=== PATIENT | male | born 1980 | race Caucasian/White ===

== ENCOUNTER 2020-10-02 09:18 | Inpatient (IN) ==
[2020-10-02] MEDS ORDERED: Naloxone 0.4 MG/ML INJ IVP PRN (11:30)
[2020-10-02] MEDS ORDERED: Acetaminophen 325 MG TABLET PO PRN (12:36)
[2020-10-02] MEDS: *HR* HYDROcodone/Acet 5/325 mg TABLET PO PRN ×2 (13:02→19:36)
[2020-10-02] MEDS: *HR* Enoxaparin 100 MG/ML SYRINGE SQ SCH ×2 (13:09→18:53)
[2020-10-02] MEDS ORDERED: Perflutren Lipid Microsphere 1.3 ML in 0.9 % Sodium Chloride 8.7 ML IVP PRN (13:38)
[2020-10-02] MEDS ORDERED: Piperacillin/Tazobactam 3.375 GM in 0.9 % Sodium Chloride Mini Bag 100 ML IVPB SCH (14:00)
[2020-10-02] MEDS: Vancomycin 1,500 MG/265 ML IV.SOLN IVPB SCH (14:50)
[2020-10-02] MEDS: Ringers Solution, Lactated 1,000 ML IVC SCH ×2 (14:54→23:29)
[2020-10-02] MEDS: Nicotine 21 MG PATCH.TD24 TD SCH (14:55)
[2020-10-02] MEDS: Ipratropium Neb 0.5 MG NEBULIZER IH SCH ×3 (16:20→23:47)
[2020-10-02] MEDS ORDERED: *HR* LORazepam 0.5 MG TABLET PO ONE (19:53)
[2020-10-02] MEDS ORDERED: Isovue-370 500 ML BOTTLE IVP ONE (22:38)
[2020-10-02] MEDS: Acyclovir 800 MG in D5% in Water 250 ML IVPB SCH (23:29)
[2020-10-02] MEDS: Dexamethasone Sodium Phos/PF 10 MG/ML VIAL IVP SCH (23:30)
[2020-10-03] MEDS: Vancomycin 1,500 MG/265 ML IV.SOLN IVPB SCH ×2 (01:42→14:31)
[2020-10-03] MEDS: *HR* HYDROcodone/Acet 5/325 mg TABLET PO PRN ×2 (01:42→18:33)
[2020-10-03] MEDS: Ipratropium Neb 0.5 MG NEBULIZER IH SCH ×6 (03:39→23:17)
[2020-10-03] MEDS: Dexamethasone Sodium Phos/PF 10 MG/ML VIAL IVP SCH ×2 (05:03→12:32)
[2020-10-03] MEDS: *HR* Enoxaparin 100 MG/ML SYRINGE SQ SCH (05:04)
[2020-10-03 05:41] LABS: Basophils % 0.1 %; Hematocrit 35.2 % (37.5-50.1); Hemoglobin 11.4 g/dL (12.9-16.9); Immature Granulocytes % 0.9 % (0-4); Lymphocytes # 0.8 K/mcL (0.6-4.6); Lymphocytes % 6.3 %; Mean Corpuscular HGB Conc 32.4 g/dL (31.6-35.5); Mean Corpuscular Hemoglobin 29.1 pg (28.0-33.3); Mean Corpuscular Volume 89.8 fL (83.0-100.0); Mean Platelet Volume 11.3 fL (9.4-12.4); Monocytes # 0.4 K/mcL (0.0-1.3); Monocytes % 3.1 %; Neutrophils # 11.7 K/mcL (1.6-8.9); Platelet Count 214 K/mcL (140-400); Red Blood Count 3.92 M/mcL (4.19-5.50); Red Cell Distribution Width 12.5 % (11.5-14.5); Segmented Neutrophils % 89.6 %; White Blood Count 13.1 K/mcL (4.3-11.1)
[2020-10-03 05:56] LABS: BUN/Creatinine Ratio 12 (6-26); Blood Urea Nitrogen 7 mg/dL (6-20); Calcium 7.8 mg/dL (8.6-10.3); Carbon Dioxide 23 mEq/L (23-29); Chloride 101 mEq/L (98-107); Glucose 129 mg/dL (70-105); Osmolality,Calculated 274 (280-300); Potassium 3.6 mEq/L (3.5-5.1); Sodium 132 mEq/L (136-145); eGFR For African Americans > 60 (> 60); eGFR For Non-African Americans > 60 (> 60)
[2020-10-03] MEDS: Nicotine 21 MG PATCH.TD24 TD SCH (08:01)
[2020-10-03] MEDS: Acyclovir 800 MG in D5% in Water 250 ML IVPB SCH ×3 (08:05→23:16)
[2020-10-03] MEDS: metroNIDAZOLE 500 MG TABLET PO SCH ×2 (12:32→20:13)
[2020-10-03] MEDS: 0.9 % Sodium Chloride 1,000 ML IVC SCH ×2 (15:44→23:16)
[2020-10-03] MEDS: cefTRIAXone 2,000 MG in Water for inj. (sterile) 20 ML IVP SCH (17:32)
[2020-10-03] MEDS: Dexamethasone 4 MG/ML VIAL IVP SCH ×2 (17:37→23:17)
[2020-10-04 01:26] LABS: Basophils % 0.1 %; Hematocrit 36.8 % (37.5-50.1); Lymphocytes # 0.9 K/mcL (0.6-4.6); Lymphocytes % 3.9 %; Mean Corpuscular HGB Conc 32.6 g/dL (31.6-35.5); Mean Corpuscular Hemoglobin 28.4 pg (28.0-33.3); Mean Platelet Volume 11.1 fL (9.4-12.4); Monocytes # 0.7 K/mcL (0.0-1.3); Monocytes % 3.2 %; Neutrophils # 20.2 K/mcL (1.6-8.9); Platelet Count 318 K/mcL (140-400); Red Blood Count 4.23 M/mcL (4.19-5.50); Red Cell Distribution Width 12.5 % (11.5-14.5); Segmented Neutrophils % 91.8 %
[2020-10-04 01:43] LABS: BUN/Creatinine Ratio 26 (6-26); Blood Urea Nitrogen 14 mg/dL (6-20); Calcium 8.4 mg/dL (8.6-10.3); Carbon Dioxide 26 mEq/L (23-29); Chloride 104 mEq/L (98-107); Glucose 151 mg/dL (70-105); Osmolality,Calculated 283 (280-300); Potassium 3.5 mEq/L (3.5-5.1); Sodium 135 mEq/L (136-145); eGFR For African Americans > 60 (> 60); eGFR For Non-African Americans > 60 (> 60)
[2020-10-04] MEDS: Vancomycin 1,500 MG/265 ML IV.SOLN IVPB SCH ×3 (01:49→17:34)
[2020-10-04] MEDS: Ipratropium Neb 0.5 MG NEBULIZER IH SCH ×6 (03:28→23:41)
[2020-10-04] MEDS: cefTRIAXone 2,000 MG in Water for inj. (sterile) 20 ML IVP SCH ×2 (05:25→17:25)
[2020-10-04] MEDS: Dexamethasone 4 MG/ML VIAL IVP SCH ×3 (05:25→17:34)
[2020-10-04] MEDS: metroNIDAZOLE 500 MG TABLET PO SCH ×3 (08:13→19:09)
[2020-10-04] MEDS: Nicotine 21 MG PATCH.TD24 TD SCH (08:13)
[2020-10-04] MEDS: 0.9 % Sodium Chloride 1,000 ML IVC SCH ×2 (08:26→18:35)
[2020-10-04 09:54] LABS: INR 1.3; Prothrombin Time 15.4 Seconds (9.4-12.1)
[2020-10-04] MEDS: Acyclovir 800 MG in D5% in Water 250 ML IVPB SCH ×2 (12:06→15:38)
[2020-10-04 12:18] LABS: Appearance,CSF Clear (Clear)
[2020-10-04 12:30] LABS: Red Blood Cell,CSF < 2000 RBC/mcL
[2020-10-04 12:53] LABS: Glucose,CSF 77 mg/dL (40-70); Total Protein,CSF 46 mg/dL (15-45)
[2020-10-04 13:21] LABS: Basophils,CSF 0 %; Eosinophils,CSF 0 %; Other Cells,CSF 0 %
[2020-10-04] MEDS: *HR* HYDROcodone/Acet 5/325 mg TABLET PO PRN (14:59)
[2020-10-05] MEDS: Dexamethasone 4 MG/ML VIAL IVP SCH ×5 (00:33→23:17)
[2020-10-05] MEDS: Acyclovir 800 MG in D5% in Water 250 ML IVPB SCH ×4 (00:35→23:18)
[2020-10-05] MEDS: Vancomycin 1,500 MG/265 ML IV.SOLN IVPB SCH (02:27)
[2020-10-05] MEDS: 0.9 % Sodium Chloride 1,000 ML IVC SCH ×4 (02:28→19:39)
[2020-10-05] MEDS: Ipratropium Neb 0.5 MG NEBULIZER IH SCH ×2 (04:12→10:55)
[2020-10-05] MEDS: cefTRIAXone 2,000 MG in Water for inj. (sterile) 20 ML IVP SCH (04:40)
[2020-10-05] MEDS: metroNIDAZOLE 500 MG TABLET PO SCH (07:50)
[2020-10-05] MEDS: Nicotine 21 MG PATCH.TD24 TD SCH (07:50)
[2020-10-05] MEDS: *HR* HYDROcodone/Acet 5/325 mg TABLET PO PRN ×2 (07:53→16:40)
[2020-10-05 07:58] LABS: BUN/Creatinine Ratio 31 (6-26); Blood Urea Nitrogen 19 mg/dL (6-20); Calcium 8.5 mg/dL (8.6-10.3); Carbon Dioxide 25 mEq/L (23-29); Chloride 107 mEq/L (98-107); Glucose 126 mg/dL (70-105); Osmolality,Calculated 290 (280-300); Potassium 3.7 mEq/L (3.5-5.1); Sodium 138 mEq/L (136-145); eGFR For African Americans > 60 (> 60); eGFR For Non-African Americans > 60 (> 60)
[2020-10-05 08:19] LABS: Basophils % 0.2 %; Hematocrit 38.4 % (37.5-50.1); Hemoglobin 12.4 g/dL (12.9-16.9); Immature Granulocytes % 1.6 % (0-4); Lymphocytes # 1.1 K/mcL (0.6-4.6); Lymphocytes % 5.7 %; Mean Corpuscular HGB Conc 32.3 g/dL (31.6-35.5); Mean Corpuscular Hemoglobin 28.4 pg (28.0-33.3); Mean Corpuscular Volume 88.1 fL (83.0-100.0); Mean Platelet Volume 11.7 fL (9.4-12.4); Monocytes # 0.5 K/mcL (0.0-1.3); Monocytes % 2.6 %; Neutrophils # 17.2 K/mcL (1.6-8.9); Platelet Count 304 K/mcL (140-400); Red Blood Count 4.36 M/mcL (4.19-5.50); Red Cell Distribution Width 12.6 % (11.5-14.5); Segmented Neutrophils % 89.9 %; White Blood Count 19.1 K/mcL (4.3-11.1)
[2020-10-05] MEDS ORDERED: Lidocaine Viscous Oral Soln 15 ML SOLUTION MM PRN (10:09)
[2020-10-05] MEDS ORDERED: 0.9 % Sodium Chloride 500 ML IVC ONE (10:09)
[2020-10-05] MEDS ORDERED: *HR* Enoxaparin 100 MG/ML SYRINGE SQ ONE (14:00)
[2020-10-05] MEDS: ceFAZolin 2,000 MG in 0.9 % Sodium Chloride 100 ML IVPB SCH ×2 (14:49→23:17)
[2020-10-05] MEDS ORDERED: *HR* Propofol 500 MG/50 ML BOTTLE IVP ONE (16:30)
[2020-10-05 17:22] LABS: Adenovirus Not Detected (Not Detect); Bordetella Pertussis Not Detected (Not Detect); Chlamydophila pneumoniae Not Detected (Not Detect); Coronavirus 229E Not Detected (Not Detect); Coronavirus HKU1 Not Detected (Not Detect); Coronavirus NL63 Not Detected (Not Detect); Coronavirus OC43 Not Detected (Not Detect); Human Metapneumovirus Not Detected (Not Detect); Human Rhinovirus/Enterovirus Not Detected (Not Detect); Influenza A Subtype 2009 H1 Not Detected (Not Detect); Influenza B Not Detected (Not Detect); Mycoplasma pneumoniae Not Detected (Not Detect); Parainfluenza Virus 1 Not Detected (Not Detect); Parainfluenza Virus 2 Not Detected (Not Detect); Parainfluenza Virus 3 Not Detected (Not Detect); Parainfluenza Virus 4 Not Detected (Not Detect); Respiratory Syncytial Virus Not Detected (Not Detect)
[2020-10-06 01:34] LABS: Basophils # 0.1 K/mcL (0.0-0.2); Basophils % 0.3 %; Hematocrit 37.1 % (37.5-50.1); Hemoglobin 12.1 g/dL (12.9-16.9); Lymphocytes # 1.3 K/mcL (0.6-4.6); Lymphocytes % 7.6 %; Mean Corpuscular HGB Conc 32.6 g/dL (31.6-35.5); Mean Platelet Volume 10.7 fL (9.4-12.4); Monocytes # 0.4 K/mcL (0.0-1.3); Monocytes % 2.5 %; Neutrophils # 15.1 K/mcL (1.6-8.9); Platelet Count 324 K/mcL (140-400); Red Blood Count 4.17 M/mcL (4.19-5.50); Red Cell Distribution Width 12.5 % (11.5-14.5); Segmented Neutrophils % 87.6 %; White Blood Count 17.2 K/mcL (4.3-11.1)
[2020-10-06 01:53] LABS: BUN/Creatinine Ratio 32 (6-26); Blood Urea Nitrogen 21 mg/dL (6-20); Carbon Dioxide 22 mEq/L (23-29); Chloride 106 mEq/L (98-107); Glucose 132 mg/dL (70-105); Osmolality,Calculated 285 (280-300); Potassium 3.9 mEq/L (3.5-5.1); Sodium 135 mEq/L (136-145); eGFR For African Americans > 60 (> 60); eGFR For Non-African Americans > 60 (> 60)
[2020-10-06] MEDS: 0.9 % Sodium Chloride 1,000 ML IVC SCH ×2 (04:41→16:03)
[2020-10-06] MEDS: Dexamethasone 4 MG/ML VIAL IVP SCH ×4 (05:43→23:49)
[2020-10-06] MEDS: *HR* Enoxaparin 100 MG/ML SYRINGE SQ SCH ×2 (05:46→16:04)
[2020-10-06] MEDS: ceFAZolin 2,000 MG in 0.9 % Sodium Chloride 100 ML IVPB SCH ×3 (08:47→23:47)
[2020-10-06] MEDS: Acyclovir 800 MG in D5% in Water 250 ML IVPB SCH ×3 (08:48→23:47)
[2020-10-06] MEDS: *HR* HYDROcodone/Acet 5/325 mg TABLET PO PRN ×2 (08:53→16:05)
[2020-10-06] MEDS: Nicotine 21 MG PATCH.TD24 TD SCH (08:53)
[2020-10-06 11:03] LABS: HSV 1 Glycoprotein G IgG CSF 0.03 IV (<=0.89)
[2020-10-06] MEDS ORDERED: Melatonin 3 MG TABLET PO ONE (20:00)
[2020-10-07 03:30] LABS: Basophils # 0.1 K/mcL (0.0-0.2); Basophils % 0.6 %; Hematocrit 38.3 % (37.5-50.1); Hemoglobin 12.5 g/dL (12.9-16.9); Immature Granulocytes % 4.9 % (0-4); Lymphocytes # 1.9 K/mcL (0.6-4.6); Lymphocytes % 9.3 %; Mean Corpuscular HGB Conc 32.6 g/dL (31.6-35.5); Mean Corpuscular Hemoglobin 28.4 pg (28.0-33.3); Monocytes # 0.7 K/mcL (0.0-1.3); Monocytes % 3.4 %; Neutrophils # 16.5 K/mcL (1.6-8.9); Nucleated Red Blood Cells 0.1 /100 WBC (0); Platelet Count 337 K/mcL (140-400); Red Cell Distribution Width 12.2 % (11.5-14.5); Segmented Neutrophils % 81.8 %; White Blood Count 20.2 K/mcL (4.3-11.1)
[2020-10-07 03:45] LABS: BUN/Creatinine Ratio 31 (6-26); Blood Urea Nitrogen 22 mg/dL (6-20); Calcium 8.3 mg/dL (8.6-10.3); Carbon Dioxide 25 mEq/L (23-29); Chloride 105 mEq/L (98-107); Glucose 114 mg/dL (70-105); Osmolality,Calculated 284 (280-300); Potassium 3.8 mEq/L (3.5-5.1); Sodium 135 mEq/L (136-145); eGFR For African Americans > 60 (> 60); eGFR For Non-African Americans > 60 (> 60)
[2020-10-07] MEDS: Dexamethasone 4 MG/ML VIAL IVP SCH ×3 (06:12→18:41)
[2020-10-07] MEDS: *HR* Enoxaparin 100 MG/ML SYRINGE SQ SCH ×2 (06:13→18:41)
[2020-10-07] MEDS: Nicotine 21 MG PATCH.TD24 TD SCH (08:08)
[2020-10-07] MEDS: ceFAZolin 2,000 MG in 0.9 % Sodium Chloride 100 ML IVPB SCH ×3 (08:09→23:07)
[2020-10-07] MEDS: Acyclovir 800 MG in D5% in Water 250 ML IVPB SCH ×3 (08:10→23:06)
[2020-10-07] MEDS: *HR* HYDROcodone/Acet 5/325 mg TABLET PO PRN (13:42)
[2020-10-07] MEDS ORDERED: Melatonin 3 MG TABLET PO ONE (21:00)
[2020-10-08] MEDS: Dexamethasone 4 MG/ML VIAL IVP SCH ×5 (00:01→23:03)
[2020-10-08 04:46] LABS: Hematocrit 38.4 % (37.5-50.1); Hemoglobin 12.9 g/dL (12.9-16.9); Mean Corpuscular HGB Conc 33.6 g/dL (31.6-35.5); Mean Corpuscular Hemoglobin 28.5 pg (28.0-33.3); Mean Corpuscular Volume 84.8 fL (83.0-100.0); Mean Platelet Volume 10.6 fL (9.4-12.4); Platelet Count 332 K/mcL (140-400); Red Blood Count 4.53 M/mcL (4.19-5.50); Red Cell Distribution Width 12.3 % (11.5-14.5); White Blood Count 19.1 K/mcL (4.3-11.1)
[2020-10-08 05:01] LABS: BUN/Creatinine Ratio 30 (6-26); Blood Urea Nitrogen 20 mg/dL (6-20); Calcium 8.6 mg/dL (8.6-10.3); Carbon Dioxide 25 mEq/L (23-29); Chloride 104 mEq/L (98-107); Glucose 116 mg/dL (70-105); Osmolality,Calculated 286 (280-300); Potassium 3.9 mEq/L (3.5-5.1); Sodium 136 mEq/L (136-145); eGFR For African Americans > 60 (> 60); eGFR For Non-African Americans > 60 (> 60)
[2020-10-08] MEDS: *HR* Enoxaparin 100 MG/ML SYRINGE SQ SCH ×2 (05:51→16:45)
[2020-10-08] MEDS: *HR* HYDROcodone/Acet 5/325 mg TABLET PO PRN ×2 (05:59→15:00)
[2020-10-08] MEDS: ceFAZolin 2,000 MG in 0.9 % Sodium Chloride 100 ML IVPB SCH ×3 (09:11→23:04)
[2020-10-08] MEDS: Acyclovir 800 MG in D5% in Water 250 ML IVPB SCH ×3 (09:12→23:05)
[2020-10-08] MEDS: Nicotine 21 MG PATCH.TD24 TD SCH (09:15)
[2020-10-08 14:17] LABS: INR 1.1; Prothrombin Time 13.2 Seconds (9.4-12.1)
[2020-10-08] MEDS: *HR* OxyCODONE/APAP 5/325 TABLET PO PRN (16:34)
[2020-10-08] MEDS ORDERED: *HR* Warfarin 5 MG TABLET PO ONE (18:00)
[2020-10-08] MEDS ORDERED: Warfarin perPT PO PRN (18:00)
[2020-10-08] MEDS ORDERED: Melatonin 3 MG TABLET PO ONE (20:00)
[2020-10-09] MEDS: *HR* OxyCODONE/APAP 5/325 TABLET PO PRN ×2 (01:44→18:30)
[2020-10-09 03:21] LABS: HSV Source CSF
[2020-10-09 04:42] LABS: Hematocrit 39.5 % (37.5-50.1); Hemoglobin 13.3 g/dL (12.9-16.9); Mean Corpuscular HGB Conc 33.7 g/dL (31.6-35.5); Mean Corpuscular Hemoglobin 28.7 pg (28.0-33.3); Mean Corpuscular Volume 85.3 fL (83.0-100.0); Mean Platelet Volume 10.6 fL (9.4-12.4); Monocytes # 0.8 K/mcL (0.0-1.3); Platelet Count 308 K/mcL (140-400); Red Blood Count 4.63 M/mcL (4.19-5.50); Red Cell Distribution Width 12.5 % (11.5-14.5); White Blood Count 21.1 K/mcL (4.3-11.1)
[2020-10-09 04:47] LABS: INR 1.4; Prothrombin Time 16.3 Seconds (9.4-12.1)
[2020-10-09 04:59] LABS: BUN/Creatinine Ratio 29 (6-26); Blood Urea Nitrogen 19 mg/dL (6-20); Calcium 8.5 mg/dL (8.6-10.3); Carbon Dioxide 27 mEq/L (23-29); Chloride 101 mEq/L (98-107); Glucose 128 mg/dL (70-105); Osmolality,Calculated 282 (280-300); Sodium 134 mEq/L (136-145); eGFR For African Americans > 60 (> 60); eGFR For Non-African Americans > 60 (> 60)
[2020-10-09 05:06] LABS: Lymphocytes # 2.5 K/mcL (0.6-4.6); Neutrophils # 17.7 K/mcL (1.6-8.9); Platelet Estimate Normal (Normal); Reactive Lymphocytes Present (Not Present)
[2020-10-09] MEDS: Dexamethasone 4 MG/ML VIAL IVP SCH ×4 (05:38→23:02)
[2020-10-09] MEDS: *HR* Enoxaparin 100 MG/ML SYRINGE SQ SCH ×2 (05:39→18:34)
[2020-10-09] MEDS: *HR* HYDROcodone/Acet 5/325 mg TABLET PO PRN (08:12)
[2020-10-09] MEDS: Nicotine 21 MG PATCH.TD24 TD SCH (08:14)
[2020-10-09] MEDS: ceFAZolin 2,000 MG in 0.9 % Sodium Chloride 100 ML IVPB SCH ×3 (08:15→23:01)
[2020-10-09] MEDS: Acyclovir 800 MG in D5% in Water 250 ML IVPB SCH ×3 (10:40→23:01)
[2020-10-09] MEDS ORDERED: *HR* Warfarin 2.5 MG TABLET PO ONE (18:00)
[2020-10-09] MEDS ORDERED: Melatonin 3 MG TABLET PO ONE (19:54)
[2020-10-10] MEDS: Dexamethasone 4 MG/ML VIAL IVP SCH ×2 (05:10→18:48)
[2020-10-10] MEDS: *HR* Enoxaparin 100 MG/ML SYRINGE SQ SCH ×2 (05:13→18:49)
[2020-10-10 06:43] LABS: INR 2.3; Prothrombin Time 25.9 Seconds (9.4-12.1)
[2020-10-10 06:45] LABS: Basophils # 0.2 K/mcL (0.0-0.2); Basophils % 0.9 %; Hematocrit 40.3 % (37.5-50.1); Hemoglobin 13.4 g/dL (12.9-16.9); Immature Granulocytes % 9.9 % (0-4); Lymphocytes # 1.4 K/mcL (0.6-4.6); Lymphocytes % 7.9 %; Mean Corpuscular HGB Conc 33.3 g/dL (31.6-35.5); Mean Corpuscular Hemoglobin 29.3 pg (28.0-33.3); Mean Platelet Volume 10.8 fL (9.4-12.4); Monocytes # 0.9 K/mcL (0.0-1.3); Monocytes % 5.1 %; Neutrophils # 13.9 K/mcL (1.6-8.9); Platelet Count 299 K/mcL (140-400); Red Blood Count 4.58 M/mcL (4.19-5.50); Red Cell Distribution Width 12.8 % (11.5-14.5); Segmented Neutrophils % 76.2 %; White Blood Count 18.2 K/mcL (4.3-11.1)
[2020-10-10 07:08] LABS: BUN/Creatinine Ratio 30 (6-26); Blood Urea Nitrogen 20 mg/dL (6-20); Calcium 8.6 mg/dL (8.6-10.3); Carbon Dioxide 28 mEq/L (23-29); Chloride 101 mEq/L (98-107); Glucose 97 mg/dL (70-105); Osmolality,Calculated 281 (280-300); Sodium 134 mEq/L (136-145); eGFR For African Americans > 60 (> 60); eGFR For Non-African Americans > 60 (> 60)
[2020-10-10 07:13] LABS: Platelet Estimate Normal (Normal); Reactive Lymphocytes Present (Not Present)
[2020-10-10] MEDS: Acyclovir 800 MG in D5% in Water 250 ML IVPB SCH (07:49)
[2020-10-10] MEDS: Nicotine 21 MG PATCH.TD24 TD SCH (07:49)
[2020-10-10] MEDS: *HR* OxyCODONE/APAP 5/325 TABLET PO PRN ×2 (07:50→15:50)
[2020-10-10] MEDS: ceFAZolin 2,000 MG in 0.9 % Sodium Chloride 100 ML IVPB SCH ×3 (07:50→23:07)
[2020-10-11 04:29] LABS: INR 1.6; Prothrombin Time 18.8 Seconds (9.4-12.1)
[2020-10-11 04:32] LABS: Hemoglobin 13.9 g/dL (12.9-16.9); Mean Corpuscular HGB Conc 33.1 g/dL (31.6-35.5); Mean Corpuscular Hemoglobin 29.5 pg (28.0-33.3); Mean Corpuscular Volume 89.2 fL (83.0-100.0); Mean Platelet Volume 10.8 fL (9.4-12.4); Platelet Count 260 K/mcL (140-400); Red Blood Count 4.71 M/mcL (4.19-5.50); Red Cell Distribution Width 13.6 % (11.5-14.5); White Blood Count 14.7 K/mcL (4.3-11.1)
[2020-10-11] MEDS: Dexamethasone 4 MG/ML VIAL IVP SCH (05:01)
[2020-10-11] MEDS: *HR* Enoxaparin 100 MG/ML SYRINGE SQ SCH (05:04)
[2020-10-11] MEDS: Nicotine 21 MG PATCH.TD24 TD SCH (08:35)
[2020-10-11] MEDS: ceFAZolin 2,000 MG in 0.9 % Sodium Chloride 100 ML IVPB SCH (08:37)
[2020-10-11] MEDS: *HR* OxyCODONE/APAP 5/325 TABLET PO PRN ×2 (08:54→17:05)
[2020-10-11 10:16] LABS: Lymphocytes # 1.8 K/mcL (0.6-4.6); Monocytes # 0.3 K/mcL (0.0-1.3); Neutrophils # 12.6 K/mcL (1.6-8.9)
[2020-10-11 10:23] LABS: Basophilic Stippling 1+ (Not Present); Platelet Estimate Normal (Normal)
[2020-10-11 10:48] VITALS: BP 116/78
[2020-10-11 15:09] LABS: Influenza A PCR Negative (Negative); Influenza B PCR Negative (Negative); Resp. Syncytial Virus PCR Negative (Negative); SARS-CoV-2 by PCR (In House) Negative (Negative)
[2020-10-11] MEDS ORDERED: *HR* Warfarin 5 MG TABLET PO ONE (18:00)
== END 2020-10-11 17:17 | DRG 720 ==
LOC: 2ANU → SUATTDRO 10-03 15:16
PROVIDERS: ADMIT General Practice; ATTEND Internal Medicine